=== PATIENT | male | born 1940 | race Caucasian/White ===

== ENCOUNTER 2017-04-08 13:47 | Inpatient (IN) | payer MEDICARE, OTHER ==
[2017-04-08] MEDS ORDERED: MIDAZOLAM 1 MG/ML 2 ML INJ (17:36)
[2017-04-08] MEDS: BUPIVACAINE 0.5% (SDV) 30 ML INJ (18:08)
[2017-04-08] MEDS: POLYMYXIN/BACITRACIN 1L IRRIG (18:09)
[2017-04-08] MEDS: LIDOCAINE 2% (MDV) 20 ML INJ (18:09)
[2017-04-08] MEDS ORDERED: FLUMAZENIL 0.5 MG INJ (18:17)
[2017-04-08] MEDS ORDERED: CEFAZOLIN 1 GM INJ (18:17)
[2017-04-08] MEDS ORDERED: KETAMINE 500 MG INJ (18:17)
[2017-04-08] MEDS ORDERED: hydrALAzine 20 MG INJ IV (18:30)
[2017-04-08] MEDS ORDERED: MEPERIDINE 25 MG INJ IV (18:30)
[2017-04-08] MEDS ORDERED: hydrALAzine 20 MG INJ (18:32)
[2017-04-08] MEDS ORDERED: METOPROLOL 5 MG INJ (19:01)
[2017-04-08] MEDS: METOPROLOL 5 MG INJ IV (19:28)
[2017-04-08] MEDS ORDERED: ONDANSETRON 4 MG INJ IV (19:30)
[2017-04-08] MEDS ORDERED: morphine 2 MG INJ IV ×2 (19:30→21:00)
[2017-04-08 19:41] LABS: ALANINE AMINOTRANSFERASE 43 IU/L (13-69); ALBUMIN/GLOBULIN RATIO 1.42; ALKALINE PHOSPHATASE 114 IU/L (42-121); ANION GAP 18 (8-16); ASPARTATE AMINO TRANSFERASE 29 IU/L (15-46); BILIRUBIN,INDIRECT 0.3 mg/dl (0-1.1); BILIRUBIN,TOTAL 0.3 mg/dl (0.2-1.3); CARBON DIOXIDE 25 mmol/L (21-31); CHLORIDE 106 mmol/L (97-110); GLUCOSE 101 mg/dl (70-220); TOTAL PROTEIN 6.8 g/dl (6.1-8.1)
[2017-04-08 19:41] LABS: MAGNESIUM 1.8 mg/dl (1.7-2.5)
[2017-04-08 19:43] LABS: CREATININE 0.95 mg/dl (0.61-1.24); POTASSIUM 4.1 mmol/L (3.5-5.1)
[2017-04-08 19:48] LABS: BLOOD UREA NITROGEN 32 mg/dl (7-20); SODIUM 145 mmol/L (135-144)
[2017-04-08] MEDS: MAGNESIUM SULFATE 2 GM/50 ML 50 ML IVPB (20:27)
[2017-04-08] MEDS ORDERED: ALBUTEROL/IPRATROPIUM (NEB) 3 ML AMP HHN (21:00)
[2017-04-08] MEDS ORDERED: LORAZEPAM 2 MG INJ IV (21:00)
[2017-04-08] MEDS ORDERED: DOCUSATE SODIUM 100 MG CAP PO (21:00)
[2017-04-08] MEDS ORDERED: NACL 0.9% 3 ML SYG IV (21:00)
[2017-04-08] MEDS ORDERED: HYDROCODONE/APAP (5/325) TAB PO (21:00)
[2017-04-08] MEDS ORDERED: ATORVASTATIN 80 MG TAB PO (21:00)
[2017-04-08] MEDS ORDERED: MIRTAZAPINE 15 MG TAB PO (21:00)
[2017-04-08] MEDS ORDERED: NITROGLYCERIN (SL) 0.4 MG TAB SL (21:00)
[2017-04-08] MEDS ORDERED: VANCOMYCIN IV PER PHARMACY XX (21:00)
[2017-04-08] MEDS ORDERED: GABAPENTIN 300 MG CAP PO (21:00)
[2017-04-08] MEDS ORDERED: MAGNESIUM HYDROXIDE 30ML CUP PO (21:00)
[2017-04-08] MEDS ORDERED: NA PHOSPHATE/BIPHOS 133 ML ENEMA PR (21:00)
[2017-04-08] MEDS ORDERED: GLUCOSE GEL 15 GRAM TUBE BUCCAL (21:30)
[2017-04-08] MEDS ORDERED: DEXTROSE 50% 50 ML SYRINGE IV ×2 (21:30)
[2017-04-08] MEDS ORDERED: GLUCAGON 1 MG INJ IM (21:30)
[2017-04-08] MEDS ORDERED: GLUCOSE GEL 15 GRAM TUBE PO ×2 (21:30)
[2017-04-08] MEDS: ATORVASTATIN 80 MG TAB PO (22:46)
[2017-04-08] MEDS: VANCOMYCIN 1.5 GM in DEXTROSE 5% 500 ML IVPB (22:47)
[2017-04-08] MEDS: MIRTAZAPINE 15 MG TAB PO (22:47)
[2017-04-08] MEDS: HEPARIN 5,000 UNIT/0.5 ML VIAL SC (23:04)
[2017-04-08] MEDS: GABAPENTIN 300 MG CAP PO (23:10)
[2017-04-09] LABS: FREE T4 (FREE THYROXINE) 1.18 ng/dl (0.78-2.44)
[2017-04-09] MEDS: PIPER-TAZO 3.375 GM IV (PMX) 100 ML IVPB ×4 (00:19→17:44)
[2017-04-09] MEDS: PANTOPRAZOLE (EC) 40 MG TAB PO (05:50)
[2017-04-09] MEDS: LEVOTHYROXINE 75 MCG TAB PO (05:50)
[2017-04-09] MEDS ORDERED: LEVOTHYROXINE 75 MCG TAB PO (07:00)
[2017-04-09 07:22] LABS: ADD MAN DIFF? NO
[2017-04-09 07:30] LABS: WHITE BLOOD COUNT 4.6 10^3/ul (4.8-10.8)
[2017-04-09 07:30] LABS: BASOPHILS % 0.9 % (0.0-2.0); EOSINOPHILS # 0.3 10^3/ul (0.0-0.5); EOSINOPHILS % 6.6 % (0.0-7.0); HEMATOCRIT 34.2 % (42.0-52.0); LYMPHOCYTES # 1.4 10^3/ul (0.8-2.9); LYMPHOCYTES % 30.2 % (15.0-51.0); MEAN CORPUSCULAR HGB CONC 32.2 g/dl (32.0-37.0); MEAN CORPUSCULAR VOLUME 90.2 fl (82.0-101.0); MEAN PLATELET VOLUME 11.3 fl (7.4-10.4); MONOCYTE # 0.4 10^3/ul (0.3-0.9); MONOCYTES % 8.1 % (0.0-11.0); NEUTROPHIL # 2.5 10^3/ul (1.6-7.5); PLATELET COUNT 132 10^3/UL (140-415); RED BLOOD COUNT 3.79 10^6/ul (4.70-6.10)
[2017-04-09 08:05] LABS: CHOL/HDL RATIO 1.7 RATIO; HDL CHOLESTEROL 33 mg/dl (31-75); LDL CHOLESTEROL,CALCULATED 6 mg/dl; TRIGLYCERIDES 96 mg/dl (0-149)
[2017-04-09 08:05] LABS: CHOLESTEROL 58 mg/dl (100-200)
[2017-04-09 08:11] LABS: ANION GAP 14 (8-16); BLOOD UREA NITROGEN 32 mg/dl (7-20); CALCIUM 8.9 mg/dl (8.4-10.2); CARBON DIOXIDE 27 mmol/L (21-31); CHLORIDE 105 mmol/L (97-110); CREATININE 1.13 mg/dl (0.61-1.24); GLUCOSE 181 mg/dl (70-220); MAGNESIUM 2.3 mg/dl (1.7-2.5); PHOSPHORUS 3.8 mg/dl (2.5-4.9); SODIUM 142 mmol/L (135-144)
[2017-04-09] MEDS: ASPIRIN 81 MG TAB PO (08:45)
[2017-04-09] MEDS: FUROSEMIDE 20 MG TAB PO (08:45)
[2017-04-09] MEDS: POTASSIUM CHLORIDE (SR) 20 MEQ TAB PO (08:45)
[2017-04-09] MEDS: INSULIN ASPART [NOVOLOG] 3 ML PEN SC ×4 (08:50→21:21)
[2017-04-09] MEDS: HEPARIN 5,000 UNIT/0.5 ML VIAL SC ×2 (08:50→21:22)
[2017-04-09] MEDS ORDERED: POTASSIUM CHLORIDE (SR) 20 MEQ TAB PO (09:00)
[2017-04-09] MEDS ORDERED: ASPIRIN (EC) 81 MG TAB PO (09:00)
[2017-04-09] MEDS ORDERED: PANTOPRAZOLE (EC) 40 MG TAB PO (09:00)
[2017-04-09] MEDS ORDERED: FUROSEMIDE 20 MG TAB PO (09:00)
[2017-04-09 09:58] LABS: HEMOGLOBIN A1C 5.8 % (0-5.9)
[2017-04-09] MEDS: VANCOMYCIN 750 MG in DEXTROSE 5% 150 ML IVPB ×2 (12:24→22:41)
[2017-04-09 18:10] LABS: CREATINE KINASE 49 IU/L (23-200)
[2017-04-09 18:23] LABS: CK INDEX 1.9
[2017-04-09 18:30] LABS: CK-MB 0.92 ng/ml (0.0-2.4); TROPONIN-I < 0.012 ng/ml (0.00-0.12)
[2017-04-09] MEDS: MIRTAZAPINE 15 MG TAB PO (21:18)
[2017-04-09] MEDS: ATORVASTATIN 80 MG TAB PO (21:19)
[2017-04-09] MEDS: GABAPENTIN 300 MG CAP PO (21:19)
[2017-04-10] MEDS: PIPER-TAZO 3.375 GM IV (PMX) 100 ML IVPB ×5 (00:17→23:13)
[2017-04-10 00:49] LABS: CREATINE KINASE 46 IU/L (23-200)
[2017-04-10 01:03] LABS: CK INDEX 2.5; CK-MB 1.15 ng/ml (0.0-2.4); TROPONIN-I 0.013 ng/ml (0.00-0.12)
[2017-04-10] MEDS: PANTOPRAZOLE (EC) 40 MG TAB PO (05:39)
[2017-04-10] MEDS: LEVOTHYROXINE 75 MCG TAB PO (05:39)
[2017-04-10] MEDS: POTASSIUM CHLORIDE (SR) 20 MEQ TAB PO (08:35)
[2017-04-10] MEDS: FUROSEMIDE 20 MG TAB PO (08:35)
[2017-04-10] MEDS: ASPIRIN 81 MG TAB PO (08:35)
[2017-04-10] MEDS: HEPARIN 5,000 UNIT/0.5 ML VIAL SC ×2 (08:41→21:07)
[2017-04-10] MEDS: INSULIN ASPART [NOVOLOG] 3 ML PEN SC ×4 (08:41→22:06)
[2017-04-10 08:51] LABS: ADD MAN DIFF? NO
[2017-04-10 08:57] LABS: BASOPHIL # 0.1 10^3/ul (0.0-0.1); BASOPHILS % 1.1 % (0.0-2.0); EOSINOPHILS # 0.3 10^3/ul (0.0-0.5); EOSINOPHILS % 5.8 % (0.0-7.0); HEMATOCRIT 35.1 % (42.0-52.0); HEMOGLOBIN 11.5 g/dl (14.0-18.0); LYMPHOCYTES # 1.8 10^3/ul (0.8-2.9); LYMPHOCYTES % 33.9 % (15.0-51.0); MEAN CORPUSCULAR HEMOGLOBIN 29.6 pg (29.0-33.0); MEAN CORPUSCULAR HGB CONC 32.8 g/dl (32.0-37.0); MEAN CORPUSCULAR VOLUME 90.2 fl (82.0-101.0); MEAN PLATELET VOLUME 11.1 fl (7.4-10.4); MONOCYTE # 0.5 10^3/ul (0.3-0.9); MONOCYTES % 9.3 % (0.0-11.0); NEUTROPHIL # 2.7 10^3/ul (1.6-7.5); NEUTROPHILS % 49.7 % (39.0-77.0); PLATELET COUNT 131 10^3/UL (140-415); POSITIVE DIFF @See below; RED BLOOD COUNT 3.89 10^6/ul (4.70-6.10)
[2017-04-10 08:57] LABS: WHITE BLOOD COUNT 5.4 10^3/ul (4.8-10.8)
[2017-04-10 09:29] LABS: ANION GAP 14 (8-16); BLOOD UREA NITROGEN 26 mg/dl (7-20); CALCIUM 8.7 mg/dl (8.4-10.2); CARBON DIOXIDE 25 mmol/L (21-31); CHLORIDE 107 mmol/L (97-110); CREATININE 1.11 mg/dl (0.61-1.24); GLUCOSE 189 mg/dl (70-220); POTASSIUM 4.4 mmol/L (3.5-5.1); SODIUM 142 mmol/L (135-144)
[2017-04-10 09:48] LABS: CREATINE KINASE 47 IU/L (23-200)
[2017-04-10 10:01] LABS: CK INDEX 2.4; TROPONIN-I 0.014 ng/ml (0.00-0.12)
[2017-04-10 10:02] LABS: CK-MB 1.14 ng/ml (0.0-2.4)
[2017-04-10] MEDS: VANCOMYCIN 750 MG in DEXTROSE 5% 150 ML IVPB ×2 (12:04→23:00)
[2017-04-10 12:15] LABS: VANCOMYCIN,TROUGH 16.9 ug/ml (10.0-20.0)
[2017-04-10] MEDS: MIRTAZAPINE 15 MG TAB PO (21:03)
[2017-04-10] MEDS: GABAPENTIN 300 MG CAP PO (21:03)
[2017-04-10] MEDS: ATORVASTATIN 80 MG TAB PO (21:03)
[2017-04-10] MEDS: INSULIN GLARGINE [LANtus] 3 ML PEN SC (22:07)
[2017-04-11] MEDS: PIPER-TAZO 3.375 GM IV (PMX) 100 ML IVPB ×4 (06:10→23:09)
[2017-04-11] MEDS: PANTOPRAZOLE (EC) 40 MG TAB PO (06:26)
[2017-04-11] MEDS: LEVOTHYROXINE 75 MCG TAB PO (06:26)
[2017-04-11] MEDS: INSULIN ASPART [NOVOLOG] 3 ML PEN SC ×4 (08:00→21:00)
[2017-04-11 08:46] LABS: ADD MAN DIFF? NO
[2017-04-11 08:47] LABS: BASOPHIL # 0.1 10^3/ul (0.0-0.1); BASOPHILS % 1.1 % (0.0-2.0); EOSINOPHILS # 0.4 10^3/ul (0.0-0.5); EOSINOPHILS % 6.5 % (0.0-7.0); HEMATOCRIT 34.8 % (42.0-52.0); HEMOGLOBIN 11.2 g/dl (14.0-18.0); LYMPHOCYTES # 1.4 10^3/ul (0.8-2.9); LYMPHOCYTES % 24.5 % (15.0-51.0); MEAN CORPUSCULAR HEMOGLOBIN 29.1 pg (29.0-33.0); MEAN CORPUSCULAR HGB CONC 32.2 g/dl (32.0-37.0); MEAN CORPUSCULAR VOLUME 90.4 fl (82.0-101.0); MEAN PLATELET VOLUME 11.5 fl (7.4-10.4); MONOCYTE # 0.5 10^3/ul (0.3-0.9); MONOCYTES % 7.9 % (0.0-11.0); NEUTROPHIL # 3.4 10^3/ul (1.6-7.5); NEUTROPHILS % 59.8 % (39.0-77.0); PLATELET COUNT 135 10^3/UL (140-415); POSITIVE DIFF @See below; RED BLOOD COUNT 3.85 10^6/ul (4.70-6.10); RED CELL DISTRIBUTION WIDTH 14.2 % (11.5-14.5)
[2017-04-11 08:47] LABS: WHITE BLOOD COUNT 5.7 10^3/ul (4.8-10.8)
[2017-04-11] MEDS: POTASSIUM CHLORIDE (SR) 20 MEQ TAB PO (09:09)
[2017-04-11] MEDS: ASPIRIN 81 MG TAB PO (09:12)
[2017-04-11] MEDS: HEPARIN 5,000 UNIT/0.5 ML VIAL SC ×2 (09:12→21:30)
[2017-04-11] MEDS: FUROSEMIDE 20 MG TAB PO (09:12)
[2017-04-11] MEDS: BENAZEPRIL 5 MG TAB PO (09:12)
[2017-04-11 09:20] LABS: ANION GAP 12 (8-16); BLOOD UREA NITROGEN 21 mg/dl (7-20); CALCIUM 9.2 mg/dl (8.4-10.2); CARBON DIOXIDE 27 mmol/L (21-31); CHLORIDE 107 mmol/L (97-110); CREATININE 1.25 mg/dl (0.61-1.24); GLUCOSE 143 mg/dl (70-220); POTASSIUM 3.9 mmol/L (3.5-5.1); SODIUM 142 mmol/L (135-144)
[2017-04-11] MEDS: VANCOMYCIN 750 MG in DEXTROSE 5% 150 ML IVPB (12:06)
[2017-04-11] MEDS: ATORVASTATIN 80 MG TAB PO (21:26)
[2017-04-11] MEDS: MIRTAZAPINE 15 MG TAB PO (21:26)
[2017-04-11] MEDS: GABAPENTIN 300 MG CAP PO (21:26)
[2017-04-11] MEDS: INSULIN GLARGINE [LANtus] 3 ML PEN SC (22:19)
[2017-04-11] MEDS: VANCOMYCIN 500MG/NS (PMX) 100 ML IVPB (22:28)
[2017-04-12] MEDS: ACCU-CHEK XX (01:23)
[2017-04-12] MEDS: ACETAMINOPHEN 325 MG TAB PO ×2 (04:55→14:17)
[2017-04-12] MEDS: PANTOPRAZOLE (EC) 40 MG TAB PO (05:59)
[2017-04-12] MEDS: LEVOTHYROXINE 75 MCG TAB PO (05:59)
[2017-04-12] MEDS: PIPER-TAZO 3.375 GM IV (PMX) 100 ML IVPB ×4 (05:59→23:01)
[2017-04-12 06:39] LABS: ADD MAN DIFF? NO
[2017-04-12 06:46] LABS: BASOPHIL # 0.1 10^3/ul (0.0-0.1); BASOPHILS % 1.1 % (0.0-2.0); EOSINOPHILS # 0.2 10^3/ul (0.0-0.5); EOSINOPHILS % 3.5 % (0.0-7.0); HEMATOCRIT 34.5 % (42.0-52.0); HEMOGLOBIN 11.3 g/dl (14.0-18.0); LYMPHOCYTES # 0.6 10^3/ul (0.8-2.9); LYMPHOCYTES % 14.1 % (15.0-51.0); MEAN CORPUSCULAR HEMOGLOBIN 29.5 pg (29.0-33.0); MEAN CORPUSCULAR HGB CONC 32.8 g/dl (32.0-37.0); MEAN CORPUSCULAR VOLUME 90.1 fl (82.0-101.0); MEAN PLATELET VOLUME 11.2 fl (7.4-10.4); MONOCYTE # 0.4 10^3/ul (0.3-0.9); MONOCYTES % 7.7 % (0.0-11.0); NEUTROPHIL # 3.3 10^3/ul (1.6-7.5); NEUTROPHILS % 73.4 % (39.0-77.0); PLATELET COUNT 116 10^3/UL (140-415); RED BLOOD COUNT 3.83 10^6/ul (4.70-6.10); RED CELL DISTRIBUTION WIDTH 13.8 % (11.5-14.5)
[2017-04-12 06:46] LABS: WHITE BLOOD COUNT 4.6 10^3/ul (4.8-10.8)
[2017-04-12 07:10] LABS: ANION GAP 14 (8-16); BLOOD UREA NITROGEN 19 mg/dl (7-20); CALCIUM 9.2 mg/dl (8.4-10.2); CARBON DIOXIDE 26 mmol/L (21-31); CHLORIDE 107 mmol/L (97-110); CREATININE 1.17 mg/dl (0.61-1.24); GLUCOSE 122 mg/dl (70-220); POTASSIUM 3.5 mmol/L (3.5-5.1); SODIUM 143 mmol/L (135-144)
[2017-04-12] MEDS: INSULIN ASPART [NOVOLOG] 3 ML PEN SC ×7 (07:55→20:57)
[2017-04-12] MEDS: POTASSIUM CHLORIDE (SR) 20 MEQ TAB PO (09:23)
[2017-04-12] MEDS: ASPIRIN 81 MG TAB PO (09:23)
[2017-04-12] MEDS: LINAGLIPTIN 5 MG TABLET PO (09:23)
[2017-04-12] MEDS: BENAZEPRIL 5 MG TAB PO (09:24)
[2017-04-12] MEDS: FUROSEMIDE 20 MG TAB PO (09:24)
[2017-04-12] MEDS: HEPARIN 5,000 UNIT/0.5 ML VIAL SC ×2 (09:39→20:49)
[2017-04-12] MEDS: VANCOMYCIN 500MG/NS (PMX) 100 ML IVPB ×2 (11:50→23:01)
[2017-04-12] MEDS: ONDANSETRON 4 MG INJ IV (14:07)
[2017-04-12] MEDS: SOD CHLORIDE 0.9% 1,000 ML IV (14:55)
[2017-04-12] MEDS: ATORVASTATIN 80 MG TAB PO (20:39)
[2017-04-12] MEDS: MIRTAZAPINE 15 MG TAB PO (20:39)
[2017-04-12] MEDS: GABAPENTIN 300 MG CAP PO (20:39)
[2017-04-12] MEDS: INSULIN GLARGINE [LANtus] 3 ML PEN SC (20:50)
[2017-04-13] MEDS: ACCU-CHEK XX (02:00)
[2017-04-13] MEDS: PIPER-TAZO 3.375 GM IV (PMX) 100 ML IVPB ×3 (05:18→18:14)
[2017-04-13] MEDS: PANTOPRAZOLE (EC) 40 MG TAB PO (05:18)
[2017-04-13] MEDS: LEVOTHYROXINE 75 MCG TAB PO (05:19)
[2017-04-13 06:35] LABS: ADD MAN DIFF? NO
[2017-04-13 06:43] LABS: WHITE BLOOD COUNT 5.8 10^3/ul (4.8-10.8)
[2017-04-13 06:43] LABS: BASOPHILS % 0.7 % (0.0-2.0); EOSINOPHILS % 0.2 % (0.0-7.0); HEMATOCRIT 30.7 % (42.0-52.0); HEMOGLOBIN 9.9 g/dl (14.0-18.0); LYMPHOCYTES % 17.1 % (15.0-51.0); MEAN CORPUSCULAR HEMOGLOBIN 29.1 pg (29.0-33.0); MEAN CORPUSCULAR HGB CONC 32.2 g/dl (32.0-37.0); MEAN CORPUSCULAR VOLUME 90.3 fl (82.0-101.0); MONOCYTE # 0.4 10^3/ul (0.3-0.9); MONOCYTES % 7.4 % (0.0-11.0); NEUTROPHIL # 4.3 10^3/ul (1.6-7.5); NEUTROPHILS % 74.4 % (39.0-77.0); PLATELET COUNT 122 10^3/UL (140-415); RED CELL DISTRIBUTION WIDTH 14.1 % (11.5-14.5)
[2017-04-13 07:17] LABS: ANION GAP 13 (8-16); BLOOD UREA NITROGEN 24 mg/dl (7-20); CALCIUM 8.6 mg/dl (8.4-10.2); CARBON DIOXIDE 25 mmol/L (21-31); CHLORIDE 109 mmol/L (97-110); CREATININE 1.24 mg/dl (0.61-1.24); GLUCOSE 112 mg/dl (70-220); POTASSIUM 3.7 mmol/L (3.5-5.1); SODIUM 143 mmol/L (135-144)
[2017-04-13] MEDS: INSULIN ASPART [NOVOLOG] 3 ML PEN SC ×7 (07:55→20:47)
[2017-04-13] MEDS: POTASSIUM CHLORIDE (SR) 20 MEQ TAB PO ×2 (10:03→18:16)
[2017-04-13] MEDS: ASPIRIN 81 MG TAB PO (10:04)
[2017-04-13] MEDS: BENAZEPRIL 5 MG TAB PO (10:04)
[2017-04-13] MEDS: FUROSEMIDE 20 MG TAB PO (10:04)
[2017-04-13] MEDS: LINAGLIPTIN 5 MG TABLET PO (10:04)
[2017-04-13] MEDS: HEPARIN 5,000 UNIT/0.5 ML VIAL SC ×2 (10:07→20:46)
[2017-04-13 10:58] LABS: VANCOMYCIN,TROUGH 13.8 ug/ml (10.0-20.0)
[2017-04-13] MEDS: SOD CHLORIDE 0.9% 1,000 ML IV (11:00)
[2017-04-13] MEDS: VANCOMYCIN 500MG/NS (PMX) 100 ML IVPB (11:48)
[2017-04-13] MEDS: ACETAMINOPHEN 325 MG TAB PO (12:03)
[2017-04-13] MEDS: ATORVASTATIN 80 MG TAB PO (20:40)
[2017-04-13] MEDS: GABAPENTIN 300 MG CAP PO (20:40)
[2017-04-13] MEDS: MIRTAZAPINE 15 MG TAB PO (20:40)
[2017-04-13] MEDS: INSULIN GLARGINE [LANtus] 3 ML PEN SC (20:46)
[2017-04-14] MEDS: PIPER-TAZO 3.375 GM IV (PMX) 100 ML IVPB ×4 (00:12→17:26)
[2017-04-14] MEDS: VANCOMYCIN 500MG/NS (PMX) 100 ML IVPB ×2 (00:13→11:16)
[2017-04-14 01:06] LABS: ADD UMIC YES; UR ASCORBIC ACID NEGATIVE (NEGATIVE); UR BILIRUBIN (Dip) NEGATIVE (NEGATIVE); UR BLOOD (Dip) 2+ mg/dL (NEGATIVE); UR CLARITY SLIGHTLY CLOUDY (CLEAR); UR COLOR YELLOW (YELLOW); UR GLUCOSE (Dip) 1+ mg/dL (NEGATIVE); UR KETONES (Dip) NEGATIVE (NEGATIVE); UR LEUKOCYTE ESTERASE (Dip) NEGATIVE Leu/ul (NEGATIVE); UR NITRITE (Dip) NEGATIVE (NEGATIVE); UR RBC 54 /HPF (0-5); UR SPECIFIC GRAVITY (Dip) 1.019 (1.003-1.030); UR TOTAL PROTEIN (Dip) 1+ mg/dl (NEGATIVE); UR UROBILINOGEN (Dip) NEGATIVE (NEGATIVE); UR WBC 2 /HPF (0-5)
[2017-04-14] MEDS: ACCU-CHEK XX (02:00)
[2017-04-14] MEDS: PANTOPRAZOLE (EC) 40 MG TAB PO (05:57)
[2017-04-14] MEDS: LEVOTHYROXINE 75 MCG TAB PO (05:57)
[2017-04-14] MEDS: SOD CHLORIDE 0.9% 1,000 ML IV (06:02)
[2017-04-14] MEDS: hydrALAzine 20 MG INJ IV (06:58)
[2017-04-14] MEDS: INSULIN ASPART [NOVOLOG] 3 ML PEN SC ×7 (07:55→20:31)
[2017-04-14 08:53] LABS: ABNORMAL IP MESSAGE 1; HEMATOCRIT 32.9 % (42.0-52.0); HEMOGLOBIN 10.7 g/dl (14.0-18.0); MEAN CORPUSCULAR HEMOGLOBIN 29.3 pg (29.0-33.0); MEAN CORPUSCULAR HGB CONC 32.5 g/dl (32.0-37.0); MEAN CORPUSCULAR VOLUME 90.1 fl (82.0-101.0); MEAN PLATELET VOLUME 11.8 fl (7.4-10.4); PLATELET COUNT 125 10^3/UL (140-415); POSITIVE DIFF @See below; RED BLOOD COUNT 3.65 10^6/ul (4.70-6.10); RED CELL DISTRIBUTION WIDTH 13.9 % (11.5-14.5)
[2017-04-14 08:53] LABS: WHITE BLOOD COUNT 3.3 10^3/ul (4.8-10.8)
[2017-04-14 08:58] LABS: ADD MAN DIFF? YES
[2017-04-14] MEDS: ONDANSETRON 4 MG INJ IV (09:03)
[2017-04-14] MEDS: FUROSEMIDE 20 MG TAB PO (09:06)
[2017-04-14] MEDS: POTASSIUM CHLORIDE (SR) 20 MEQ TAB PO (09:07)
[2017-04-14] MEDS: ASPIRIN 81 MG TAB PO (09:07)
[2017-04-14] MEDS: BENAZEPRIL 5 MG TAB PO (09:07)
[2017-04-14] MEDS: ERGOCALCIFEROL 50,000 UNIT CAP PO (09:07)
[2017-04-14] MEDS: LINAGLIPTIN 5 MG TABLET PO (09:07)
[2017-04-14] MEDS: HEPARIN 5,000 UNIT/0.5 ML VIAL SC ×2 (09:08→20:26)
[2017-04-14 09:12] LABS: ANION GAP 14 (8-16); BLOOD UREA NITROGEN 18 mg/dl (7-20); CALCIUM 8.2 mg/dl (8.4-10.2); CARBON DIOXIDE 21 mmol/L (21-31); CHLORIDE 111 mmol/L (97-110); CREATININE 1.02 mg/dl (0.61-1.24); GLUCOSE 106 mg/dl (70-220); POTASSIUM 4.1 mmol/L (3.5-5.1); SODIUM 142 mmol/L (135-144)
[2017-04-14 10:25] LABS: ANISOCYTOSIS 2+ (0-0); BAND NEUTROPHILS #M 1.1 10^3/ul (0.0-0.6); BAND NEUTROPHILS % (M) 34 % (0-4); LYMPHOCYTES #M 0.7 10^3/ul (0.8-2.9); LYMPHOCYTES % (M) 24 % (15-51); METAMYELOCYTES %M 1 % (0-0); MICROCYTOSIS 2+ (0-0); MONOCYTE #M 0.2 10^3/ul (0.3-0.9); MONOCYTES % (M) 7 % (0-11); PLATELET ESTIMATE DECREASED; REACTIVE LYMPHOCYTES #M 0.1 10^3/ul (0.0-0.0); REACTIVE LYMPHOCYTES% (M) 5 % (0-0); SEGMENTED NEUTROPHILS (M) % 29 % (39-77); SMUDGE%M 4 % (0-0)
[2017-04-14] MEDS: MIRTAZAPINE 15 MG TAB PO (20:15)
[2017-04-14] MEDS: OSELTAMIVIR 75 MG CAP PO (20:15)
[2017-04-14] MEDS: GABAPENTIN 300 MG CAP PO (20:15)
[2017-04-14] MEDS: ATORVASTATIN 80 MG TAB PO (20:16)
[2017-04-14] MEDS: INSULIN GLARGINE [LANtus] 3 ML PEN SC (20:29)
[2017-04-15] MEDS: VANCOMYCIN 500MG/NS (PMX) 100 ML IVPB ×2 (00:33→11:14)
[2017-04-15] MEDS: PIPER-TAZO 3.375 GM IV (PMX) 100 ML IVPB ×3 (01:24→12:00)
[2017-04-15] MEDS: ACCU-CHEK XX (02:00)
[2017-04-15] MEDS: SOD CHLORIDE 0.9% 1,000 ML IV ×2 (03:05→22:55)
[2017-04-15] MEDS: PANTOPRAZOLE (EC) 40 MG TAB PO (05:45)
[2017-04-15] MEDS: LEVOTHYROXINE 75 MCG TAB PO (05:46)
[2017-04-15 07:09] LABS: HEMATOCRIT 28.6 % (42.0-52.0); MEAN CORPUSCULAR HEMOGLOBIN 28.7 pg (29.0-33.0); MEAN CORPUSCULAR HGB CONC 31.5 g/dl (32.0-37.0); MEAN CORPUSCULAR VOLUME 91.1 fl (82.0-101.0); MEAN PLATELET VOLUME 11.3 fl (7.4-10.4); PLATELET COUNT 138 10^3/UL (140-415); POSITIVE DIFF @See below; RED BLOOD COUNT 3.14 10^6/ul (4.70-6.10); RED CELL DISTRIBUTION WIDTH 14.1 % (11.5-14.5)
[2017-04-15 07:09] LABS: WHITE BLOOD COUNT 2.9 10^3/ul (4.8-10.8)
[2017-04-15 07:20] LABS: ADD MAN DIFF? YES
[2017-04-15 07:34] LABS: ANION GAP 11 (8-16); BLOOD UREA NITROGEN 19 mg/dl (7-20); CALCIUM 8.2 mg/dl (8.4-10.2); CARBON DIOXIDE 23 mmol/L (21-31); CHLORIDE 112 mmol/L (97-110); CREATININE 1.15 mg/dl (0.61-1.24); GLUCOSE 108 mg/dl (70-220); SODIUM 142 mmol/L (135-144)
[2017-04-15] MEDS: INSULIN ASPART [NOVOLOG] 3 ML PEN SC ×7 (07:55→21:00)
[2017-04-15] MEDS: HEPARIN 5,000 UNIT/0.5 ML VIAL SC ×2 (08:20→22:08)
[2017-04-15] MEDS: OSELTAMIVIR 75 MG CAP PO ×3 (08:23→21:56)
[2017-04-15] MEDS: ASPIRIN 81 MG TAB PO (08:23)
[2017-04-15] MEDS: POTASSIUM CHLORIDE (SR) 20 MEQ TAB PO (08:23)
[2017-04-15] MEDS: LINAGLIPTIN 5 MG TABLET PO (08:23)
[2017-04-15] MEDS: ACETAMINOPHEN 325 MG TAB PO (08:24)
[2017-04-15] MEDS: FUROSEMIDE 20 MG TAB PO (08:31)
[2017-04-15] MEDS: BENAZEPRIL 5 MG TAB PO (08:31)
[2017-04-15 12:36] LABS: ANISOCYTOSIS 1+ (0-0); BAND NEUTROPHILS #M 0.4 10^3/ul (0.0-0.6); BAND NEUTROPHILS % (M) 17 % (0-4); BASOPHILS % (M) 1 % (0-2); BURR CELLS 1+ (0-0); EOSINOPHILS % (M) 3 % (0-7); GIANT THROMBO% (M) 6 % (0-0); LYMPHOCYTES #M 0.8 10^3/ul (0.8-2.9); LYMPHOCYTES % (M) 29 % (15-51); METAMYELOCYTES %M 2 % (0-0); MONOCYTE #M 0.1 10^3/ul (0.3-0.9); MONOCYTES % (M) 6 % (0-11); PLATELET ESTIMATE DECREASED; POLYCHROMASIA 1+ (0-0); SEG NEUT #M 1.2 10^3/ul (1.7-7.5); SEGMENTED NEUTROPHILS (M) % 42 % (39-77); SMUDGE%M 21 % (0-0)
[2017-04-15] MEDS: MIRTAZAPINE 15 MG TAB PO (21:54)
[2017-04-15] MEDS: ATORVASTATIN 80 MG TAB PO (21:55)
[2017-04-15] MEDS: GABAPENTIN 300 MG CAP PO (21:55)
[2017-04-15] MEDS: INSULIN GLARGINE [LANtus] 3 ML PEN SC (22:09)
[2017-04-16] MEDS: ACCU-CHEK XX (02:00)
[2017-04-16] MEDS: PANTOPRAZOLE (EC) 40 MG TAB PO (06:11)
[2017-04-16] MEDS: LEVOTHYROXINE 75 MCG TAB PO (06:11)
[2017-04-16] MEDS: INSULIN ASPART [NOVOLOG] 3 ML PEN SC ×7 (07:55→21:00)
[2017-04-16 08:04] LABS: ADD MAN DIFF? NO
[2017-04-16 08:05] LABS: WHITE BLOOD COUNT 4.2 10^3/ul (4.8-10.8)
[2017-04-16 08:05] LABS: BASOPHILS % 0.5 % (0.0-2.0); EOSINOPHILS # 0.3 10^3/ul (0.0-0.5); EOSINOPHILS % 6.7 % (0.0-7.0); HEMATOCRIT 29.1 % (42.0-52.0); HEMOGLOBIN 9.3 g/dl (14.0-18.0); LYMPHOCYTES # 1.1 10^3/ul (0.8-2.9); LYMPHOCYTES % 27.3 % (15.0-51.0); MEAN CORPUSCULAR HEMOGLOBIN 29.4 pg (29.0-33.0); MEAN CORPUSCULAR VOLUME 92.1 fl (82.0-101.0); MEAN PLATELET VOLUME 10.7 fl (7.4-10.4); MONOCYTE # 0.4 10^3/ul (0.3-0.9); MONOCYTES % 8.9 % (0.0-11.0); NEUTROPHIL # 2.4 10^3/ul (1.6-7.5); NEUTROPHILS % 56.4 % (39.0-77.0); PLATELET COUNT 147 10^3/UL (140-415); RED BLOOD COUNT 3.16 10^6/ul (4.70-6.10)
[2017-04-16 08:29] LABS: MAGNESIUM 1.9 mg/dl (1.7-2.5)
[2017-04-16 08:31] LABS: ANION GAP 12 (8-16); BLOOD UREA NITROGEN 27 mg/dl (7-20); CALCIUM 8.6 mg/dl (8.4-10.2); CARBON DIOXIDE 20 mmol/L (21-31); CHLORIDE 115 mmol/L (97-110); CREATININE 1.97 mg/dl (0.61-1.24); GLUCOSE 108 mg/dl (70-220); POTASSIUM 4.5 mmol/L (3.5-5.1); SODIUM 142 mmol/L (135-144)
[2017-04-16] MEDS: OSELTAMIVIR 75 MG CAP PO ×2 (09:05→22:36)
[2017-04-16] MEDS: FUROSEMIDE 20 MG TAB PO (09:05)
[2017-04-16] MEDS: POTASSIUM CHLORIDE (SR) 20 MEQ TAB PO (09:05)
[2017-04-16] MEDS: ASPIRIN 81 MG TAB PO (09:05)
[2017-04-16] MEDS: BENAZEPRIL 5 MG TAB PO (09:06)
[2017-04-16] MEDS: LINAGLIPTIN 5 MG TABLET PO (09:06)
[2017-04-16] MEDS: HEPARIN 5,000 UNIT/0.5 ML VIAL SC ×2 (09:18→22:42)
[2017-04-16] MEDS: SOD CHLORIDE 0.45% 1,000 ML IV (16:33)
[2017-04-16] MEDS: ATORVASTATIN 80 MG TAB PO (22:36)
[2017-04-16] MEDS: GABAPENTIN 300 MG CAP PO (22:36)
[2017-04-16] MEDS: MIRTAZAPINE 15 MG TAB PO (22:36)
[2017-04-16] MEDS: INSULIN GLARGINE [LANtus] 3 ML PEN SC (22:43)
[2017-04-17] MEDS: ACCU-CHEK XX (02:00)
[2017-04-17] MEDS: SOD CHLORIDE 0.45% 1,000 ML IV ×2 (06:01→22:31)
[2017-04-17] MEDS: PANTOPRAZOLE (EC) 40 MG TAB PO (06:01)
[2017-04-17] MEDS: LEVOTHYROXINE 75 MCG TAB PO (06:02)
[2017-04-17] MEDS: INSULIN ASPART [NOVOLOG] 3 ML PEN SC ×7 (08:57→21:00)
[2017-04-17] MEDS: POTASSIUM CHLORIDE (SR) 20 MEQ TAB PO (09:05)
[2017-04-17] MEDS: ASPIRIN 81 MG TAB PO (09:06)
[2017-04-17] MEDS: OSELTAMIVIR 75 MG CAP PO (09:06)
[2017-04-17] MEDS: LINAGLIPTIN 5 MG TABLET PO (09:07)
[2017-04-17] MEDS: BENAZEPRIL 5 MG TAB PO (09:08)
[2017-04-17 09:10] LABS: ADD MAN DIFF? NO
[2017-04-17 09:14] LABS: BASOPHILS % 0.4 % (0.0-2.0); EOSINOPHILS # 0.3 10^3/ul (0.0-0.5); EOSINOPHILS % 6.8 % (0.0-7.0); HEMOGLOBIN 9.6 g/dl (14.0-18.0); LYMPHOCYTES # 1.1 10^3/ul (0.8-2.9); LYMPHOCYTES % 24.8 % (15.0-51.0); MEAN CORPUSCULAR HEMOGLOBIN 28.7 pg (29.0-33.0); MEAN CORPUSCULAR VOLUME 89.8 fl (82.0-101.0); MEAN PLATELET VOLUME 10.9 fl (7.4-10.4); MONOCYTE # 0.3 10^3/ul (0.3-0.9); MONOCYTES % 7.3 % (0.0-11.0); NEUTROPHIL # 2.7 10^3/ul (1.6-7.5); NEUTROPHILS % 60.3 % (39.0-77.0); PLATELET COUNT 147 10^3/UL (140-415); RED BLOOD COUNT 3.34 10^6/ul (4.70-6.10)
[2017-04-17 09:14] LABS: WHITE BLOOD COUNT 4.6 10^3/ul (4.8-10.8)
[2017-04-17] MEDS: HEPARIN 5,000 UNIT/0.5 ML VIAL SC ×2 (09:16→21:16)
[2017-04-17 09:33] LABS: ANION GAP 13 (8-16); BLOOD UREA NITROGEN 25 mg/dl (7-20); CALCIUM 8.7 mg/dl (8.4-10.2); CARBON DIOXIDE 19 mmol/L (21-31); CHLORIDE 113 mmol/L (97-110); CREATININE 1.91 mg/dl (0.61-1.24); GLUCOSE 148 mg/dl (70-220); POTASSIUM 4.3 mmol/L (3.5-5.1); SODIUM 141 mmol/L (135-144)
[2017-04-17] MEDS: GABAPENTIN 300 MG CAP PO (21:05)
[2017-04-17] MEDS: ATORVASTATIN 80 MG TAB PO (21:05)
[2017-04-17] MEDS: MIRTAZAPINE 15 MG TAB PO (21:05)
[2017-04-17] MEDS: INSULIN GLARGINE [LANtus] 3 ML PEN SC (21:10)
[2017-04-17] MEDS: OSELTAMIVIR 30 MG CAP PO (22:30)
[2017-04-18] MEDS: ACCU-CHEK XX (02:00)
[2017-04-18] MEDS: hydrALAzine 20 MG INJ IV (03:15)
[2017-04-18] MEDS: SOD CHLORIDE 0.45% 1,000 ML IV ×2 (05:00→12:30)
[2017-04-18] MEDS: LEVOTHYROXINE 75 MCG TAB PO (06:12)
[2017-04-18] MEDS: PANTOPRAZOLE (EC) 40 MG TAB PO (06:12)
[2017-04-18 06:19] LABS: ADD MAN DIFF? NO
[2017-04-18 06:27] LABS: WHITE BLOOD COUNT 5.8 10^3/ul (4.8-10.8)
[2017-04-18 06:27] LABS: BASOPHILS % 0.7 % (0.0-2.0); EOSINOPHILS # 0.4 10^3/ul (0.0-0.5); EOSINOPHILS % 6.4 % (0.0-7.0); HEMATOCRIT 30.4 % (42.0-52.0); HEMOGLOBIN 10.2 g/dl (14.0-18.0); LYMPHOCYTES # 1.4 10^3/ul (0.8-2.9); LYMPHOCYTES % 24.6 % (15.0-51.0); MEAN CORPUSCULAR HEMOGLOBIN 29.4 pg (29.0-33.0); MEAN CORPUSCULAR HGB CONC 33.6 g/dl (32.0-37.0); MEAN CORPUSCULAR VOLUME 87.6 fl (82.0-101.0); MEAN PLATELET VOLUME 10.4 fl (7.4-10.4); MONOCYTE # 0.4 10^3/ul (0.3-0.9); NEUTROPHIL # 3.5 10^3/ul (1.6-7.5); NEUTROPHILS % 60.8 % (39.0-77.0); PLATELET COUNT 194 10^3/UL (140-415); RED BLOOD COUNT 3.47 10^6/ul (4.70-6.10)
[2017-04-18 07:06] LABS: ANION GAP 14 (8-16); BLOOD UREA NITROGEN 21 mg/dl (7-20); CALCIUM 9.2 mg/dl (8.4-10.2); CARBON DIOXIDE 20 mmol/L (21-31); CHLORIDE 114 mmol/L (97-110); CREATININE 1.91 mg/dl (0.61-1.24); GLUCOSE 100 mg/dl (70-220); POTASSIUM 4.1 mmol/L (3.5-5.1); SODIUM 144 mmol/L (135-144)
[2017-04-18] MEDS: INSULIN ASPART [NOVOLOG] 3 ML PEN SC ×7 (07:55→21:00)
[2017-04-18] MEDS: POTASSIUM CHLORIDE (SR) 20 MEQ TAB PO (08:27)
[2017-04-18] MEDS: OSELTAMIVIR 30 MG CAP PO ×3 (08:27→22:30)
[2017-04-18] MEDS: ASPIRIN 81 MG TAB PO (08:27)
[2017-04-18] MEDS: HEPARIN 5,000 UNIT/0.5 ML VIAL SC ×3 (08:44→22:30)
[2017-04-18] MEDS: LINAGLIPTIN 5 MG TABLET PO (08:49)
[2017-04-18] MEDS: INSULIN GLARGINE [LANtus] 3 ML PEN SC (20:00)
[2017-04-18] MEDS: MIRTAZAPINE 15 MG TAB PO ×2 (22:30)
[2017-04-18] MEDS: ATORVASTATIN 80 MG TAB PO ×2 (22:30)
[2017-04-18] MEDS: GABAPENTIN 300 MG CAP PO ×2 (22:30)
[2017-04-18] MEDS: HYDROCODONE/APAP (5/325) TAB PO (22:42)
[2017-04-19] MEDS: ACCU-CHEK XX (02:00)
[2017-04-19] MEDS: SOD CHLORIDE 0.45% 1,000 ML IV ×2 (02:19→14:35)
[2017-04-19] MEDS: LEVOTHYROXINE 75 MCG TAB PO (06:10)
[2017-04-19] MEDS: PANTOPRAZOLE (EC) 40 MG TAB PO (06:10)
[2017-04-19] MEDS: INSULIN ASPART [NOVOLOG] 3 ML PEN SC ×7 (07:55→21:00)
[2017-04-19] MEDS: LINAGLIPTIN 5 MG TABLET PO (09:22)
[2017-04-19] MEDS: OSELTAMIVIR 30 MG CAP PO (09:22)
[2017-04-19] MEDS: ASPIRIN 81 MG TAB PO (09:24)
[2017-04-19] MEDS: GUAIFENESIN/DM 5ML CUP PO (09:24)
[2017-04-19] MEDS: POTASSIUM CHLORIDE (SR) 20 MEQ TAB PO (09:24)
[2017-04-19] MEDS: HEPARIN 5,000 UNIT/0.5 ML VIAL SC (09:25)
[2017-04-19] MEDS: FUROSEMIDE 40 MG TAB PO (18:18)
[2017-04-19] MEDS: LISINOPRIL 20 MG TAB PO (18:18)
[2017-04-19] MEDS: GABAPENTIN 300 MG CAP PO (22:00)
[2017-04-19] MEDS: MIRTAZAPINE 15 MG TAB PO (22:01)
[2017-04-19] MEDS: ATORVASTATIN 80 MG TAB PO (22:01)
[2017-04-19] MEDS: AMIODARONE 200 MG TAB PO (22:02)
[2017-04-19] MEDS: APIXABAN 5 MG TABLET PO (22:02)
[2017-04-19] MEDS: INSULIN GLARGINE [LANtus] 3 ML PEN SC (22:21)
[2017-04-20] MEDS: ACCU-CHEK XX (02:00)
[2017-04-20] MEDS: PANTOPRAZOLE (EC) 40 MG TAB PO (06:10)
[2017-04-20] MEDS: LEVOTHYROXINE 75 MCG TAB PO (06:10)
[2017-04-20] MEDS: SOD CHLORIDE 0.45% 1,000 ML IV ×2 (07:00→17:12)
[2017-04-20 07:08] LABS: ADD MAN DIFF? NO
[2017-04-20 07:15] LABS: BASOPHIL # 0.1 10^3/ul (0.0-0.1); EOSINOPHILS # 0.3 10^3/ul (0.0-0.5); EOSINOPHILS % 5.2 % (0.0-7.0); HEMATOCRIT 29.4 % (42.0-52.0); HEMOGLOBIN 9.6 g/dl (14.0-18.0); LYMPHOCYTES # 1.3 10^3/ul (0.8-2.9); LYMPHOCYTES % 25.8 % (15.0-51.0); MEAN CORPUSCULAR HEMOGLOBIN 28.8 pg (29.0-33.0); MEAN CORPUSCULAR HGB CONC 32.7 g/dl (32.0-37.0); MEAN CORPUSCULAR VOLUME 88.3 fl (82.0-101.0); MEAN PLATELET VOLUME 10.8 fl (7.4-10.4); MONOCYTE # 0.4 10^3/ul (0.3-0.9); MONOCYTES % 7.5 % (0.0-11.0); NEUTROPHILS % 59.5 % (39.0-77.0); PLATELET COUNT 216 10^3/UL (140-415); RED BLOOD COUNT 3.33 10^6/ul (4.70-6.10); RED CELL DISTRIBUTION WIDTH 14.2 % (11.5-14.5)
[2017-04-20 07:33] LABS: ANION GAP 14 (8-16); BLOOD UREA NITROGEN 21 mg/dl (7-20); CARBON DIOXIDE 23 mmol/L (21-31); CHLORIDE 111 mmol/L (97-110); CREATININE 1.77 mg/dl (0.61-1.24); GLUCOSE 84 mg/dl (70-220); POTASSIUM 3.9 mmol/L (3.5-5.1); SODIUM 144 mmol/L (135-144)
[2017-04-20 07:34] LABS: B-TYPE NATRIURETIC PEPTIDE 29300 PG/ML (0-125)
[2017-04-20] MEDS: INSULIN ASPART [NOVOLOG] 3 ML PEN SC ×7 (07:55→21:00)
[2017-04-20] MEDS: APIXABAN 5 MG TABLET PO ×2 (09:25→21:42)
[2017-04-20] MEDS: AMIODARONE 200 MG TAB PO ×2 (09:25→21:42)
[2017-04-20] MEDS: FUROSEMIDE 40 MG TAB PO (09:25)
[2017-04-20] MEDS: LISINOPRIL 20 MG TAB PO (09:25)
[2017-04-20] MEDS: POTASSIUM CHLORIDE (SR) 20 MEQ TAB PO (09:25)
[2017-04-20] MEDS: LINAGLIPTIN 5 MG TABLET PO (09:25)
[2017-04-20] MEDS: GABAPENTIN 300 MG CAP PO (21:41)
[2017-04-20] MEDS: MIRTAZAPINE 15 MG TAB PO (21:42)
[2017-04-20] MEDS: ATORVASTATIN 80 MG TAB PO (21:42)
[2017-04-20] MEDS: INSULIN GLARGINE [LANtus] 3 ML PEN SC (21:48)
[2017-04-21] MEDS: ACCU-CHEK XX (02:00)
[2017-04-21] MEDS: LEVOTHYROXINE 75 MCG TAB PO (05:41)
[2017-04-21] MEDS: PANTOPRAZOLE (EC) 40 MG TAB PO (05:41)
[2017-04-21] MEDS: INSULIN ASPART [NOVOLOG] 3 ML PEN SC ×7 (07:46→20:39)
[2017-04-21] MEDS: SOD CHLORIDE 0.45% 1,000 ML IV ×2 (08:00→18:00)
[2017-04-21] MEDS: AMIODARONE 200 MG TAB PO ×2 (08:12→20:40)
[2017-04-21] MEDS: POTASSIUM CHLORIDE (SR) 20 MEQ TAB PO (08:12)
[2017-04-21] MEDS: APIXABAN 5 MG TABLET PO ×2 (08:12→20:41)
[2017-04-21] MEDS: FUROSEMIDE 40 MG TAB PO (08:13)
[2017-04-21] MEDS: LINAGLIPTIN 5 MG TABLET PO (08:14)
[2017-04-21] MEDS: LISINOPRIL 20 MG TAB PO (08:14)
[2017-04-21] MEDS: ERGOCALCIFEROL 50,000 UNIT CAP PO (09:57)
[2017-04-21] MEDS: ATORVASTATIN 80 MG TAB PO (20:39)
[2017-04-21] MEDS: MIRTAZAPINE 15 MG TAB PO (20:39)
[2017-04-21] MEDS: GABAPENTIN 300 MG CAP PO (20:39)
[2017-04-21] MEDS: INSULIN GLARGINE [LANtus] 3 ML PEN SC (20:48)
[2017-04-22] MEDS: ACCU-CHEK XX (01:36)
[2017-04-22] MEDS: PANTOPRAZOLE (EC) 40 MG TAB PO (05:35)
[2017-04-22] MEDS: LEVOTHYROXINE 75 MCG TAB PO (05:35)
[2017-04-22] MEDS: SOD CHLORIDE 0.45% 1,000 ML IV ×2 (06:10→21:30)
[2017-04-22 06:32] LABS: ADD MAN DIFF? NO
[2017-04-22 06:42] LABS: BASOPHIL # 0.1 10^3/ul (0.0-0.1); BASOPHILS % 0.7 % (0.0-2.0); EOSINOPHILS # 0.3 10^3/ul (0.0-0.5); EOSINOPHILS % 4.9 % (0.0-7.0); HEMATOCRIT 29.7 % (42.0-52.0); HEMOGLOBIN 9.7 g/dl (14.0-18.0); LYMPHOCYTES # 1.4 10^3/ul (0.8-2.9); LYMPHOCYTES % 20.2 % (15.0-51.0); MEAN CORPUSCULAR HEMOGLOBIN 29.1 pg (29.0-33.0); MEAN CORPUSCULAR HGB CONC 32.7 g/dl (32.0-37.0); MEAN CORPUSCULAR VOLUME 89.2 fl (82.0-101.0); MEAN PLATELET VOLUME 10.8 fl (7.4-10.4); MONOCYTE # 0.5 10^3/ul (0.3-0.9); MONOCYTES % 6.8 % (0.0-11.0); NEUTROPHIL # 4.5 10^3/ul (1.6-7.5); PLATELET COUNT 201 10^3/UL (140-415); RED BLOOD COUNT 3.33 10^6/ul (4.70-6.10); RED CELL DISTRIBUTION WIDTH 14.4 % (11.5-14.5)
[2017-04-22 06:42] LABS: WHITE BLOOD COUNT 6.8 10^3/ul (4.8-10.8)
[2017-04-22 07:17] LABS: ANION GAP 15 (8-16); BLOOD UREA NITROGEN 26 mg/dl (7-20); CALCIUM 8.7 mg/dl (8.4-10.2); CARBON DIOXIDE 24 mmol/L (21-31); CHLORIDE 106 mmol/L (97-110); CREATININE 2.09 mg/dl (0.61-1.24); GLUCOSE 94 mg/dl (70-220); POTASSIUM 3.8 mmol/L (3.5-5.1); SODIUM 141 mmol/L (135-144)
[2017-04-22] MEDS: INSULIN ASPART [NOVOLOG] 3 ML PEN SC ×7 (07:55→22:12)
[2017-04-22] MEDS: LINAGLIPTIN 5 MG TABLET PO (08:07)
[2017-04-22] MEDS: APIXABAN 5 MG TABLET PO ×2 (08:07→22:13)
[2017-04-22] MEDS: AMIODARONE 200 MG TAB PO ×2 (08:08→22:13)
[2017-04-22] MEDS: FUROSEMIDE 40 MG TAB PO (08:08)
[2017-04-22] MEDS: LISINOPRIL 20 MG TAB PO (08:09)
[2017-04-22] MEDS: POTASSIUM CHLORIDE (SR) 20 MEQ TAB PO (08:18)
[2017-04-22] MEDS: GABAPENTIN 300 MG CAP PO (22:12)
[2017-04-22] MEDS: MIRTAZAPINE 15 MG TAB PO (22:13)
[2017-04-22] MEDS: ATORVASTATIN 80 MG TAB PO (22:15)
[2017-04-22] MEDS: INSULIN GLARGINE [LANtus] 3 ML PEN SC (22:27)
[2017-04-23] MEDS: ACCU-CHEK XX (02:00)
[2017-04-23] MEDS: LEVOTHYROXINE 75 MCG TAB PO (06:13)
[2017-04-23] MEDS: PANTOPRAZOLE (EC) 40 MG TAB PO (06:14)
[2017-04-23] MEDS: SOD CHLORIDE 0.45% 1,000 ML IV (06:16)
[2017-04-23] MEDS: INSULIN ASPART [NOVOLOG] 3 ML PEN SC ×7 (07:55→21:00)
[2017-04-23] MEDS: APIXABAN 5 MG TABLET PO ×2 (08:12→21:29)
[2017-04-23] MEDS: LISINOPRIL 20 MG TAB PO (08:13)
[2017-04-23] MEDS: LINAGLIPTIN 5 MG TABLET PO (08:13)
[2017-04-23] MEDS: POTASSIUM CHLORIDE (SR) 20 MEQ TAB PO (08:14)
[2017-04-23] MEDS: FUROSEMIDE 40 MG TAB PO (08:14)
[2017-04-23] MEDS: AMIODARONE 200 MG TAB PO ×2 (08:16→21:00)
[2017-04-23 11:36] LABS: ADD MAN DIFF? NO
[2017-04-23 11:44] LABS: BASOPHILS % 0.5 % (0.0-2.0); EOSINOPHILS # 0.3 10^3/ul (0.0-0.5); EOSINOPHILS % 3.8 % (0.0-7.0); HEMATOCRIT 30.9 % (42.0-52.0); HEMOGLOBIN 9.9 g/dl (14.0-18.0); LYMPHOCYTES # 1.3 10^3/ul (0.8-2.9); LYMPHOCYTES % 16.5 % (15.0-51.0); MEAN CORPUSCULAR HEMOGLOBIN 28.6 pg (29.0-33.0); MEAN CORPUSCULAR VOLUME 89.3 fl (82.0-101.0); MEAN PLATELET VOLUME 10.8 fl (7.4-10.4); MONOCYTE # 0.5 10^3/ul (0.3-0.9); MONOCYTES % 6.9 % (0.0-11.0); NEUTROPHIL # 5.4 10^3/ul (1.6-7.5); NEUTROPHILS % 71.6 % (39.0-77.0); PLATELET COUNT 257 10^3/UL (140-415); RED BLOOD COUNT 3.46 10^6/ul (4.70-6.10); RED CELL DISTRIBUTION WIDTH 14.3 % (11.5-14.5)
[2017-04-23 11:44] LABS: WHITE BLOOD COUNT 7.6 10^3/ul (4.8-10.8)
[2017-04-23 12:20] LABS: ANION GAP 14 (8-16); BLOOD UREA NITROGEN 33 mg/dl (7-20); CALCIUM 8.8 mg/dl (8.4-10.2); CARBON DIOXIDE 25 mmol/L (21-31); CHLORIDE 106 mmol/L (97-110); GLUCOSE 121 mg/dl (70-220); POTASSIUM 4.3 mmol/L (3.5-5.1); SODIUM 141 mmol/L (135-144)
[2017-04-23] MEDS: GABAPENTIN 300 MG CAP PO (21:29)
[2017-04-23] MEDS: ATORVASTATIN 80 MG TAB PO (21:31)
[2017-04-23] MEDS: MIRTAZAPINE 15 MG TAB PO (21:31)
[2017-04-23] MEDS: INSULIN GLARGINE [LANtus] 3 ML PEN SC (21:52)
[2017-04-24] MEDS: SOD CHLORIDE 0.45% 1,000 ML IV ×3 (01:34→14:20)
[2017-04-24] MEDS: ACCU-CHEK XX (02:00)
[2017-04-24] MEDS: PANTOPRAZOLE (EC) 40 MG TAB PO (05:29)
[2017-04-24] MEDS: LEVOTHYROXINE 75 MCG TAB PO (05:29)
[2017-04-24 06:46] LABS: ADD MAN DIFF? NO
[2017-04-24 06:49] LABS: BASOPHIL # 0.1 10^3/ul (0.0-0.1); BASOPHILS % 0.7 % (0.0-2.0); EOSINOPHILS # 0.3 10^3/ul (0.0-0.5); EOSINOPHILS % 4.3 % (0.0-7.0); HEMATOCRIT 30.8 % (42.0-52.0); LYMPHOCYTES # 1.3 10^3/ul (0.8-2.9); LYMPHOCYTES % 17.8 % (15.0-51.0); MEAN CORPUSCULAR HGB CONC 32.5 g/dl (32.0-37.0); MEAN CORPUSCULAR VOLUME 89.3 fl (82.0-101.0); MEAN PLATELET VOLUME 10.4 fl (7.4-10.4); MONOCYTE # 0.5 10^3/ul (0.3-0.9); MONOCYTES % 7.3 % (0.0-11.0); NEUTROPHIL # 5.2 10^3/ul (1.6-7.5); NEUTROPHILS % 69.4 % (39.0-77.0); PLATELET COUNT 246 10^3/UL (140-415); RED BLOOD COUNT 3.45 10^6/ul (4.70-6.10); RED CELL DISTRIBUTION WIDTH 14.2 % (11.5-14.5)
[2017-04-24 06:49] LABS: WHITE BLOOD COUNT 7.4 10^3/ul (4.8-10.8)
[2017-04-24 07:30] LABS: ANION GAP 14 (8-16); BLOOD UREA NITROGEN 31 mg/dl (7-20); CALCIUM 9.3 mg/dl (8.4-10.2); CARBON DIOXIDE 27 mmol/L (21-31); CHLORIDE 106 mmol/L (97-110); CREATININE 2.23 mg/dl (0.61-1.24); GLUCOSE 89 mg/dl (70-220); SODIUM 143 mmol/L (135-144)
[2017-04-24] MEDS: INSULIN ASPART [NOVOLOG] 3 ML PEN SC ×7 (07:55→20:01)
[2017-04-24] MEDS: LISINOPRIL 20 MG TAB PO ×2 (08:21→22:10)
[2017-04-24] MEDS: APIXABAN 5 MG TABLET PO ×2 (08:21→20:19)
[2017-04-24] MEDS: POTASSIUM CHLORIDE (SR) 20 MEQ TAB PO (08:21)
[2017-04-24] MEDS: AMIODARONE 200 MG TAB PO ×2 (08:21→20:27)
[2017-04-24] MEDS: LINAGLIPTIN 5 MG TABLET PO (08:21)
[2017-04-24] MEDS: INSULIN GLARGINE [LANtus] 3 ML PEN SC (20:01)
[2017-04-24] MEDS: GABAPENTIN 300 MG CAP PO (20:19)
[2017-04-24] MEDS: ATORVASTATIN 80 MG TAB PO (20:19)
[2017-04-24] MEDS: MIRTAZAPINE 15 MG TAB PO (20:19)
[2017-04-25] MEDS: ACCU-CHEK XX (02:00)
[2017-04-25] MEDS: PANTOPRAZOLE (EC) 40 MG TAB PO (06:00)
[2017-04-25] MEDS: SOD CHLORIDE 0.45% 1,000 ML IV ×2 (06:00→20:42)
[2017-04-25] MEDS: LEVOTHYROXINE 75 MCG TAB PO (06:00)
[2017-04-25] MEDS: INSULIN ASPART [NOVOLOG] 3 ML PEN SC ×7 (08:01→20:42)
[2017-04-25 08:14] LABS: ANION GAP 13 (8-16); BLOOD UREA NITROGEN 32 mg/dl (7-20); CALCIUM 8.7 mg/dl (8.4-10.2); CARBON DIOXIDE 27 mmol/L (21-31); CHLORIDE 106 mmol/L (97-110); CREATININE 1.98 mg/dl (0.61-1.24); GLUCOSE 154 mg/dl (70-220); POTASSIUM 4.3 mmol/L (3.5-5.1); SODIUM 142 mmol/L (135-144)
[2017-04-25] MEDS: POTASSIUM CHLORIDE (SR) 20 MEQ TAB PO (08:34)
[2017-04-25] MEDS: APIXABAN 5 MG TABLET PO ×2 (08:34→20:30)
[2017-04-25] MEDS: LINAGLIPTIN 5 MG TABLET PO (08:34)
[2017-04-25] MEDS: AMIODARONE 200 MG TAB PO ×2 (08:35→20:31)
[2017-04-25] MEDS: LISINOPRIL 20 MG TAB PO ×2 (08:35→20:31)
[2017-04-25] MEDS: GABAPENTIN 300 MG CAP PO (20:29)
[2017-04-25] MEDS: ATORVASTATIN 80 MG TAB PO (20:30)
[2017-04-25] MEDS: MIRTAZAPINE 15 MG TAB PO (20:30)
[2017-04-25] MEDS: INSULIN GLARGINE [LANtus] 3 ML PEN SC (20:39)
[2017-04-26] MEDS: ACCU-CHEK XX (02:00)
[2017-04-26] MEDS: PANTOPRAZOLE (EC) 40 MG TAB PO (05:52)
[2017-04-26] MEDS: LEVOTHYROXINE 75 MCG TAB PO (05:52)
[2017-04-26] MEDS: INSULIN ASPART [NOVOLOG] 3 ML PEN SC ×7 (07:55→21:00)
[2017-04-26] MEDS: APIXABAN 5 MG TABLET PO ×2 (08:05→20:16)
[2017-04-26] MEDS: POTASSIUM CHLORIDE (SR) 20 MEQ TAB PO (08:05)
[2017-04-26] MEDS: LINAGLIPTIN 5 MG TABLET PO (08:07)
[2017-04-26] MEDS: LISINOPRIL 20 MG TAB PO ×2 (08:07→20:30)
[2017-04-26] MEDS: AMIODARONE 200 MG TAB PO ×2 (08:07→21:00)
[2017-04-26] MEDS: GUAIFENESIN/DM 5ML CUP PO (08:09)
[2017-04-26 09:36] LABS: ANION GAP 13 (8-16); BLOOD UREA NITROGEN 35 mg/dl (7-20); CARBON DIOXIDE 26 mmol/L (21-31); CHLORIDE 109 mmol/L (97-110); CREATININE 2.02 mg/dl (0.61-1.24); GLUCOSE 114 mg/dl (70-220); POTASSIUM 4.4 mmol/L (3.5-5.1); SODIUM 144 mmol/L (135-144)
[2017-04-26] MEDS: SOD CHLORIDE 0.45% 1,000 ML IV (12:35)
[2017-04-26] MEDS: ATORVASTATIN 80 MG TAB PO (20:16)
[2017-04-26] MEDS: GABAPENTIN 300 MG CAP PO (20:17)
[2017-04-26] MEDS: INSULIN GLARGINE [LANtus] 3 ML PEN SC (20:23)
[2017-04-26] MEDS: MIRTAZAPINE 15 MG TAB PO (20:25)
[2017-04-27] MEDS: ACCU-CHEK XX (02:00)
[2017-04-27] MEDS: SOD CHLORIDE 0.45% 1,000 ML IV ×3 (02:48→18:25)
[2017-04-27] MEDS: LEVOTHYROXINE 75 MCG TAB PO (05:27)
[2017-04-27] MEDS: PANTOPRAZOLE (EC) 40 MG TAB PO (05:28)
[2017-04-27 07:18] LABS: ANION GAP 14 (8-16); BLOOD UREA NITROGEN 35 mg/dl (7-20); CALCIUM 8.9 mg/dl (8.4-10.2); CARBON DIOXIDE 25 mmol/L (21-31); CHLORIDE 109 mmol/L (97-110); CREATININE 1.86 mg/dl (0.61-1.24); GLUCOSE 83 mg/dl (70-220); POTASSIUM 4.4 mmol/L (3.5-5.1); SODIUM 144 mmol/L (135-144)
[2017-04-27] MEDS: INSULIN ASPART [NOVOLOG] 3 ML PEN SC ×7 (07:55→21:03)
[2017-04-27] MEDS: AMIODARONE 200 MG TAB PO ×2 (09:22→20:47)
[2017-04-27] MEDS: POTASSIUM CHLORIDE (SR) 20 MEQ TAB PO (09:22)
[2017-04-27] MEDS: LISINOPRIL 20 MG TAB PO (09:22)
[2017-04-27] MEDS: APIXABAN 5 MG TABLET PO ×2 (09:22→20:47)
[2017-04-27] MEDS: LINAGLIPTIN 5 MG TABLET PO (09:22)
[2017-04-27] MEDS: ATORVASTATIN 80 MG TAB PO (20:46)
[2017-04-27] MEDS: GABAPENTIN 300 MG CAP PO (20:46)
[2017-04-27] MEDS: MIRTAZAPINE 15 MG TAB PO (20:50)
[2017-04-27] MEDS: INSULIN GLARGINE [LANtus] 3 ML PEN SC (20:59)
[2017-04-28] MEDS: ACCU-CHEK XX (01:50)
[2017-04-28] MEDS: PANTOPRAZOLE (EC) 40 MG TAB PO (05:14)
[2017-04-28] MEDS: LEVOTHYROXINE 75 MCG TAB PO (05:14)
[2017-04-28 07:25] LABS: ADD MAN DIFF? NO
[2017-04-28 07:27] LABS: BASOPHIL # 0.1 10^3/ul (0.0-0.1); BASOPHILS % 0.9 % (0.0-2.0); EOSINOPHILS # 0.4 10^3/ul (0.0-0.5); EOSINOPHILS % 5.6 % (0.0-7.0); HEMATOCRIT 28.1 % (42.0-52.0); LYMPHOCYTES # 1.5 10^3/ul (0.8-2.9); LYMPHOCYTES % 23.9 % (15.0-51.0); MEAN CORPUSCULAR HEMOGLOBIN 28.8 pg (29.0-33.0); MEAN CORPUSCULAR VOLUME 89.8 fl (82.0-101.0); MEAN PLATELET VOLUME 10.9 fl (7.4-10.4); MONOCYTE # 0.6 10^3/ul (0.3-0.9); MONOCYTES % 8.6 % (0.0-11.0); NEUTROPHIL # 3.9 10^3/ul (1.6-7.5); NEUTROPHILS % 60.7 % (39.0-77.0); PLATELET COUNT 221 10^3/UL (140-415); RED BLOOD COUNT 3.13 10^6/ul (4.70-6.10); RED CELL DISTRIBUTION WIDTH 14.3 % (11.5-14.5)
[2017-04-28 07:27] LABS: WHITE BLOOD COUNT 6.4 10^3/ul (4.8-10.8)
[2017-04-28 07:50] LABS: ANION GAP 15 (8-16); BLOOD UREA NITROGEN 36 mg/dl (7-20); CALCIUM 8.5 mg/dl (8.4-10.2); CARBON DIOXIDE 22 mmol/L (21-31); CHLORIDE 111 mmol/L (97-110); CREATININE 1.57 mg/dl (0.61-1.24); GLUCOSE 158 mg/dl (70-220); POTASSIUM 4.6 mmol/L (3.5-5.1); SODIUM 143 mmol/L (135-144)
[2017-04-28] MEDS: INSULIN ASPART [NOVOLOG] 3 ML PEN SC ×7 (07:55→20:48)
[2017-04-28] MEDS: POTASSIUM CHLORIDE (SR) 20 MEQ TAB PO (08:40)
[2017-04-28] MEDS: LINAGLIPTIN 5 MG TABLET PO (08:40)
[2017-04-28] MEDS: AMIODARONE 200 MG TAB PO (08:40)
[2017-04-28] MEDS: APIXABAN 5 MG TABLET PO ×2 (08:40→20:47)
[2017-04-28] MEDS: ERGOCALCIFEROL 50,000 UNIT CAP PO (08:41)
[2017-04-28] MEDS: SOD CHLORIDE 0.45% 1,000 ML IV (08:57)
[2017-04-28] MEDS: ATORVASTATIN 80 MG TAB PO (20:46)
[2017-04-28] MEDS: MIRTAZAPINE 15 MG TAB PO (20:46)
[2017-04-28] MEDS: GABAPENTIN 300 MG CAP PO (20:46)
[2017-04-28] MEDS: INSULIN GLARGINE [LANtus] 3 ML PEN SC (20:55)
[2017-04-29] MEDS: ACCU-CHEK XX (02:00)
[2017-04-29] MEDS: SOD CHLORIDE 0.45% 1,000 ML IV ×2 (02:52→18:53)
[2017-04-29] MEDS: LEVOTHYROXINE 75 MCG TAB PO (06:33)
[2017-04-29] MEDS: PANTOPRAZOLE (EC) 40 MG TAB PO (06:34)
[2017-04-29] MEDS: INSULIN ASPART [NOVOLOG] 3 ML PEN SC ×7 (07:55→20:59)
[2017-04-29] MEDS: POTASSIUM CHLORIDE (SR) 20 MEQ TAB PO (08:38)
[2017-04-29] MEDS: APIXABAN 5 MG TABLET PO ×2 (08:38→20:46)
[2017-04-29] MEDS: LINAGLIPTIN 5 MG TABLET PO (08:38)
[2017-04-29] MEDS: AMIODARONE 200 MG TAB PO (08:39)
[2017-04-29 09:55] LABS: ANION GAP 11 (8-16); BLOOD UREA NITROGEN 35 mg/dl (7-20); CALCIUM 8.9 mg/dl (8.4-10.2); CARBON DIOXIDE 24 mmol/L (21-31); CHLORIDE 112 mmol/L (97-110); CREATININE 1.52 mg/dl (0.61-1.24); GLUCOSE 107 mg/dl (70-220); POTASSIUM 4.3 mmol/L (3.5-5.1); SODIUM 143 mmol/L (135-144)
[2017-04-29] MEDS: MIRTAZAPINE 15 MG TAB PO (20:46)
[2017-04-29] MEDS: GABAPENTIN 300 MG CAP PO (20:47)
[2017-04-29] MEDS: ATORVASTATIN 80 MG TAB PO (20:48)
[2017-04-29] MEDS: INSULIN GLARGINE [LANtus] 3 ML PEN SC (21:04)
[2017-04-30] MEDS: ACCU-CHEK XX (02:00)
[2017-04-30] MEDS: SOD CHLORIDE 0.45% 1,000 ML IV (06:21)
[2017-04-30] MEDS: PANTOPRAZOLE (EC) 40 MG TAB PO (06:23)
[2017-04-30] MEDS: LEVOTHYROXINE 75 MCG TAB PO (06:23)
[2017-04-30] MEDS: INSULIN ASPART [NOVOLOG] 3 ML PEN SC ×7 (07:55→20:20)
[2017-04-30 08:04] LABS: ADD MAN DIFF? NO
[2017-04-30 08:20] LABS: BASOPHIL # 0.1 10^3/ul (0.0-0.1); BASOPHILS % 1.9 % (0.0-2.0); EOSINOPHILS # 0.4 10^3/ul (0.0-0.5); HEMATOCRIT 29.7 % (42.0-52.0); HEMOGLOBIN 9.4 g/dl (14.0-18.0); LYMPHOCYTES # 1.8 10^3/ul (0.8-2.9); LYMPHOCYTES % 33.1 % (15.0-51.0); MEAN CORPUSCULAR HEMOGLOBIN 28.2 pg (29.0-33.0); MEAN CORPUSCULAR HGB CONC 31.6 g/dl (32.0-37.0); MEAN CORPUSCULAR VOLUME 89.2 fl (82.0-101.0); MEAN PLATELET VOLUME 11.2 fl (7.4-10.4); MONOCYTE # 0.4 10^3/ul (0.3-0.9); MONOCYTES % 7.4 % (0.0-11.0); NEUTROPHIL # 2.7 10^3/ul (1.6-7.5); NEUTROPHILS % 50.4 % (39.0-77.0); PLATELET COUNT 227 10^3/UL (140-415); RED BLOOD COUNT 3.33 10^6/ul (4.70-6.10); RED CELL DISTRIBUTION WIDTH 14.3 % (11.5-14.5)
[2017-04-30 08:20] LABS: WHITE BLOOD COUNT 5.3 10^3/ul (4.8-10.8)
[2017-04-30 08:36] LABS: ANION GAP 12 (8-16); BLOOD UREA NITROGEN 30 mg/dl (7-20); CALCIUM 8.8 mg/dl (8.4-10.2); CARBON DIOXIDE 23 mmol/L (21-31); CHLORIDE 114 mmol/L (97-110); CREATININE 1.61 mg/dl (0.61-1.24); GLUCOSE 75 mg/dl (70-220); POTASSIUM 4.3 mmol/L (3.5-5.1); SODIUM 145 mmol/L (135-144)
[2017-04-30] MEDS: LINAGLIPTIN 5 MG TABLET PO (09:06)
[2017-04-30] MEDS: POTASSIUM CHLORIDE (SR) 20 MEQ TAB PO (09:06)
[2017-04-30] MEDS: APIXABAN 5 MG TABLET PO ×2 (09:07→20:20)
[2017-04-30] MEDS: AMIODARONE 200 MG TAB PO (09:07)
[2017-04-30] MEDS: GABAPENTIN 300 MG CAP PO (20:14)
[2017-04-30] MEDS: ATORVASTATIN 80 MG TAB PO (20:14)
[2017-04-30] MEDS: INSULIN GLARGINE [LANtus] 3 ML PEN SC (20:16)
[2017-04-30] MEDS: MIRTAZAPINE 15 MG TAB PO (20:19)
[2017-05-01] MEDS: ACCU-CHEK XX (02:18)
[2017-05-01] MEDS: SOD CHLORIDE 0.45% 1,000 ML IV ×2 (02:58→23:55)
[2017-05-01] MEDS: LEVOTHYROXINE 75 MCG TAB PO (05:53)
[2017-05-01] MEDS: PANTOPRAZOLE (EC) 40 MG TAB PO (05:53)
[2017-05-01] MEDS: INSULIN ASPART [NOVOLOG] 3 ML PEN SC ×7 (07:55→20:07)
[2017-05-01 08:19] LABS: ADD MAN DIFF? NO
[2017-05-01 08:27] LABS: BASOPHIL # 0.1 10^3/ul (0.0-0.1); BASOPHILS % 1.7 % (0.0-2.0); EOSINOPHILS # 0.3 10^3/ul (0.0-0.5); HEMOGLOBIN 8.9 g/dl (14.0-18.0); LYMPHOCYTES # 1.6 10^3/ul (0.8-2.9); LYMPHOCYTES % 32.5 % (15.0-51.0); MEAN CORPUSCULAR HEMOGLOBIN 28.1 pg (29.0-33.0); MEAN CORPUSCULAR HGB CONC 31.8 g/dl (32.0-37.0); MEAN CORPUSCULAR VOLUME 88.3 fl (82.0-101.0); MEAN PLATELET VOLUME 10.9 fl (7.4-10.4); MONOCYTE # 0.4 10^3/ul (0.3-0.9); MONOCYTES % 8.7 % (0.0-11.0); NEUTROPHIL # 2.4 10^3/ul (1.6-7.5); NEUTROPHILS % 49.7 % (39.0-77.0); PLATELET COUNT 211 10^3/UL (140-415); RED BLOOD COUNT 3.17 10^6/ul (4.70-6.10); RED CELL DISTRIBUTION WIDTH 14.4 % (11.5-14.5)
[2017-05-01 08:27] LABS: WHITE BLOOD COUNT 4.8 10^3/ul (4.8-10.8)
[2017-05-01 08:43] LABS: MAGNESIUM 1.3 mg/dl (1.7-2.5)
[2017-05-01 08:43] LABS: ANION GAP 14 (8-16); BLOOD UREA NITROGEN 26 mg/dl (7-20); CALCIUM 8.8 mg/dl (8.4-10.2); CARBON DIOXIDE 22 mmol/L (21-31); CHLORIDE 113 mmol/L (97-110); GLUCOSE 94 mg/dl (70-220); POTASSIUM 4.2 mmol/L (3.5-5.1); SODIUM 145 mmol/L (135-144)
[2017-05-01] MEDS: POTASSIUM CHLORIDE (SR) 20 MEQ TAB PO (10:02)
[2017-05-01] MEDS: AMIODARONE 200 MG TAB PO (10:02)
[2017-05-01] MEDS: FUROSEMIDE 20 MG TAB PO (10:02)
[2017-05-01] MEDS: APIXABAN 5 MG TABLET PO ×2 (10:03→20:18)
[2017-05-01] MEDS: LINAGLIPTIN 5 MG TABLET PO (10:03)
[2017-05-01] MEDS: MAGNESIUM SULFATE 2 GM/50 ML 50 ML IVPB (14:05)
[2017-05-01] MEDS: MIRTAZAPINE 15 MG TAB PO (20:17)
[2017-05-01] MEDS: ATORVASTATIN 80 MG TAB PO (20:17)
[2017-05-01] MEDS: GABAPENTIN 300 MG CAP PO (20:17)
[2017-05-01] MEDS: INSULIN GLARGINE [LANtus] 3 ML PEN SC (20:22)
[2017-05-02] MEDS: ACCU-CHEK XX (02:00)
[2017-05-02] MEDS: PANTOPRAZOLE (EC) 40 MG TAB PO (06:03)
[2017-05-02] MEDS: LEVOTHYROXINE 75 MCG TAB PO (06:03)
[2017-05-02 07:10] LABS: ADD MAN DIFF? NO
[2017-05-02 07:17] LABS: BASOPHIL # 0.1 10^3/ul (0.0-0.1); BASOPHILS % 1.8 % (0.0-2.0); EOSINOPHILS # 0.4 10^3/ul (0.0-0.5); EOSINOPHILS % 7.1 % (0.0-7.0); HEMATOCRIT 30.7 % (42.0-52.0); HEMOGLOBIN 9.8 g/dl (14.0-18.0); LYMPHOCYTES # 1.4 10^3/ul (0.8-2.9); LYMPHOCYTES % 29.1 % (15.0-51.0); MEAN CORPUSCULAR HEMOGLOBIN 28.1 pg (29.0-33.0); MEAN CORPUSCULAR HGB CONC 31.9 g/dl (32.0-37.0); MEAN PLATELET VOLUME 10.9 fl (7.4-10.4); MONOCYTE # 0.4 10^3/ul (0.3-0.9); MONOCYTES % 8.1 % (0.0-11.0); NEUTROPHIL # 2.7 10^3/ul (1.6-7.5); NEUTROPHILS % 53.7 % (39.0-77.0); PLATELET COUNT 216 10^3/UL (140-415); RED BLOOD COUNT 3.49 10^6/ul (4.70-6.10); RED CELL DISTRIBUTION WIDTH 14.4 % (11.5-14.5)
[2017-05-02 07:38] LABS: ANION GAP 12 (8-16); BLOOD UREA NITROGEN 25 mg/dl (7-20); CALCIUM 9.3 mg/dl (8.4-10.2); CARBON DIOXIDE 25 mmol/L (21-31); CHLORIDE 111 mmol/L (97-110); CREATININE 1.42 mg/dl (0.61-1.24); GLUCOSE 95 mg/dl (70-220); MAGNESIUM 1.8 mg/dl (1.7-2.5); POTASSIUM 4.4 mmol/L (3.5-5.1); SODIUM 144 mmol/L (135-144)
[2017-05-02] MEDS: INSULIN ASPART [NOVOLOG] 3 ML PEN SC ×7 (07:48→21:00)
[2017-05-02] MEDS: LINAGLIPTIN 5 MG TABLET PO (07:49)
[2017-05-02] MEDS: APIXABAN 5 MG TABLET PO ×2 (07:50→20:19)
[2017-05-02] MEDS: POTASSIUM CHLORIDE (SR) 20 MEQ TAB PO (07:50)
[2017-05-02] MEDS: FUROSEMIDE 20 MG TAB PO (07:50)
[2017-05-02] MEDS: AMIODARONE 200 MG TAB PO (07:50)
[2017-05-02] MEDS: MIRTAZAPINE 15 MG TAB PO (20:19)
[2017-05-02] MEDS: ATORVASTATIN 80 MG TAB PO (20:19)
[2017-05-02] MEDS: GABAPENTIN 300 MG CAP PO (20:19)
[2017-05-02] MEDS: SOD CHLORIDE 0.45% 1,000 ML IV (20:21)
[2017-05-02] MEDS: INSULIN GLARGINE [LANtus] 3 ML PEN SC (20:26)
[2017-05-03] MEDS: ACCU-CHEK XX (02:00)
[2017-05-03] MEDS: LEVOTHYROXINE 75 MCG TAB PO (05:16)
[2017-05-03] MEDS: PANTOPRAZOLE (EC) 40 MG TAB PO (05:16)
[2017-05-03 07:20] LABS: ANION GAP 12 (8-16); BLOOD UREA NITROGEN 31 mg/dl (7-20); CALCIUM 8.9 mg/dl (8.4-10.2); CARBON DIOXIDE 24 mmol/L (21-31); CHLORIDE 109 mmol/L (97-110); CREATININE 1.65 mg/dl (0.61-1.24); GLUCOSE 139 mg/dl (70-220); POTASSIUM 4.1 mmol/L (3.5-5.1); SODIUM 141 mmol/L (135-144)
[2017-05-03] MEDS: INSULIN ASPART [NOVOLOG] 3 ML PEN SC ×7 (08:04→20:22)
[2017-05-03] MEDS: AMIODARONE 200 MG TAB PO (08:57)
[2017-05-03] MEDS: FUROSEMIDE 20 MG TAB PO (08:57)
[2017-05-03] MEDS: LINAGLIPTIN 5 MG TABLET PO (08:57)
[2017-05-03] MEDS: POTASSIUM CHLORIDE (SR) 20 MEQ TAB PO (08:58)
[2017-05-03] MEDS: APIXABAN 5 MG TABLET PO ×2 (08:58→20:21)
[2017-05-03] MEDS: SOD CHLORIDE 0.45% 1,000 ML IV (15:08)
[2017-05-03] MEDS: ATORVASTATIN 80 MG TAB PO (20:21)
[2017-05-03] MEDS: MIRTAZAPINE 15 MG TAB PO (20:21)
[2017-05-03] MEDS: GABAPENTIN 300 MG CAP PO (20:21)
[2017-05-03] MEDS: INSULIN GLARGINE [LANtus] 3 ML PEN SC (20:29)
[2017-05-04] MEDS: ACCU-CHEK XX (02:00)
[2017-05-04] MEDS: PANTOPRAZOLE (EC) 40 MG TAB PO (05:42)
[2017-05-04] MEDS: LEVOTHYROXINE 75 MCG TAB PO (05:43)
[2017-05-04] MEDS: SOD CHLORIDE 0.45% 1,000 ML IV (05:43)
[2017-05-04 06:27] LABS: ADD MAN DIFF? NO
[2017-05-04 06:36] LABS: BASOPHIL # 0.1 10^3/ul (0.0-0.1); BASOPHILS % 1.1 % (0.0-2.0); EOSINOPHILS # 0.4 10^3/ul (0.0-0.5); EOSINOPHILS % 6.5 % (0.0-7.0); HEMATOCRIT 29.1 % (42.0-52.0); HEMOGLOBIN 9.5 g/dl (14.0-18.0); LYMPHOCYTES # 1.6 10^3/ul (0.8-2.9); LYMPHOCYTES % 25.4 % (15.0-51.0); MEAN CORPUSCULAR HGB CONC 32.6 g/dl (32.0-37.0); MEAN CORPUSCULAR VOLUME 88.7 fl (82.0-101.0); MEAN PLATELET VOLUME 10.7 fl (7.4-10.4); MONOCYTE # 0.5 10^3/ul (0.3-0.9); MONOCYTES % 8.2 % (0.0-11.0); NEUTROPHIL # 3.7 10^3/ul (1.6-7.5); NEUTROPHILS % 58.5 % (39.0-77.0); PLATELET COUNT 175 10^3/UL (140-415); RED BLOOD COUNT 3.28 10^6/ul (4.70-6.10); RED CELL DISTRIBUTION WIDTH 14.6 % (11.5-14.5)
[2017-05-04 06:36] LABS: WHITE BLOOD COUNT 6.4 10^3/ul (4.8-10.8)
[2017-05-04 07:00] LABS: ANION GAP 13 (8-16); BLOOD UREA NITROGEN 31 mg/dl (7-20); CALCIUM 9.2 mg/dl (8.4-10.2); CARBON DIOXIDE 22 mmol/L (21-31); CHLORIDE 111 mmol/L (97-110); CREATININE 1.59 mg/dl (0.61-1.24); GLUCOSE 108 mg/dl (70-220); POTASSIUM 4.1 mmol/L (3.5-5.1); SODIUM 142 mmol/L (135-144)
[2017-05-04] MEDS: INSULIN ASPART [NOVOLOG] 3 ML PEN SC ×7 (07:55→21:48)
[2017-05-04] MEDS: POTASSIUM CHLORIDE (SR) 20 MEQ TAB PO (09:13)
[2017-05-04] MEDS: FUROSEMIDE 20 MG TAB PO (09:13)
[2017-05-04] MEDS: LINAGLIPTIN 5 MG TABLET PO (09:14)
[2017-05-04] MEDS: APIXABAN 5 MG TABLET PO ×2 (09:14→21:34)
[2017-05-04] MEDS: AMIODARONE 200 MG TAB PO (09:14)
[2017-05-04] MEDS: GABAPENTIN 300 MG CAP PO (21:34)
[2017-05-04] MEDS: MIRTAZAPINE 15 MG TAB PO (21:34)
[2017-05-04] MEDS: INSULIN GLARGINE [LANtus] 3 ML PEN SC (21:48)
[2017-05-04] MEDS: ATORVASTATIN 80 MG TAB PO (21:50)
[2017-05-05] MEDS: ACCU-CHEK XX (02:00)
[2017-05-05] MEDS: LEVOTHYROXINE 75 MCG TAB PO (05:19)
[2017-05-05] MEDS: PANTOPRAZOLE (EC) 40 MG TAB PO (05:20)
[2017-05-05] MEDS: SOD CHLORIDE 0.45% 1,000 ML IV (05:51)
[2017-05-05 06:18] LABS: ADD MAN DIFF? NO
[2017-05-05 06:36] LABS: WHITE BLOOD COUNT 5.6 10^3/ul (4.8-10.8)
[2017-05-05 06:36] LABS: BASOPHIL # 0.1 10^3/ul (0.0-0.1); BASOPHILS % 1.4 % (0.0-2.0); EOSINOPHILS # 0.5 10^3/ul (0.0-0.5); EOSINOPHILS % 8.1 % (0.0-7.0); HEMATOCRIT 29.3 % (42.0-52.0); HEMOGLOBIN 9.6 g/dl (14.0-18.0); LYMPHOCYTES # 1.9 10^3/ul (0.8-2.9); LYMPHOCYTES % 33.9 % (15.0-51.0); MEAN CORPUSCULAR HEMOGLOBIN 28.8 pg (29.0-33.0); MEAN CORPUSCULAR HGB CONC 32.8 g/dl (32.0-37.0); MEAN PLATELET VOLUME 11.1 fl (7.4-10.4); MONOCYTE # 0.5 10^3/ul (0.3-0.9); NEUTROPHIL # 2.6 10^3/ul (1.6-7.5); NEUTROPHILS % 47.2 % (39.0-77.0); PLATELET COUNT 167 10^3/UL (140-415); RED BLOOD COUNT 3.33 10^6/ul (4.70-6.10); RED CELL DISTRIBUTION WIDTH 14.7 % (11.5-14.5)
[2017-05-05 07:12] LABS: ANION GAP 12 (8-16); BLOOD UREA NITROGEN 30 mg/dl (7-20); CALCIUM 8.8 mg/dl (8.4-10.2); CARBON DIOXIDE 25 mmol/L (21-31); CHLORIDE 110 mmol/L (97-110); CREATININE 1.58 mg/dl (0.61-1.24); GLUCOSE 86 mg/dl (70-220); POTASSIUM 4.2 mmol/L (3.5-5.1); SODIUM 143 mmol/L (135-144)
[2017-05-05] MEDS: INSULIN ASPART [NOVOLOG] 3 ML PEN SC ×7 (07:55→21:00)
[2017-05-05] MEDS: POTASSIUM CHLORIDE (SR) 20 MEQ TAB PO (08:19)
[2017-05-05] MEDS: AMIODARONE 200 MG TAB PO (08:20)
[2017-05-05] MEDS: LINAGLIPTIN 5 MG TABLET PO (08:20)
[2017-05-05] MEDS: APIXABAN 5 MG TABLET PO ×2 (08:20→20:23)
[2017-05-05] MEDS: ERGOCALCIFEROL 50,000 UNIT CAP PO (10:51)
[2017-05-05] MEDS: GABAPENTIN 300 MG CAP PO (20:23)
[2017-05-05] MEDS: ATORVASTATIN 80 MG TAB PO (20:24)
[2017-05-05] MEDS: MIRTAZAPINE 15 MG TAB PO (20:24)
[2017-05-05] MEDS: INSULIN GLARGINE [LANtus] 3 ML PEN SC (20:29)
[2017-05-06] MEDS: ACCU-CHEK XX (02:00)
[2017-05-06] MEDS: SOD CHLORIDE 0.45% 1,000 ML IV (04:09)
[2017-05-06] MEDS: PANTOPRAZOLE (EC) 40 MG TAB PO (05:18)
[2017-05-06] MEDS: LEVOTHYROXINE 75 MCG TAB PO (05:19)
[2017-05-06 07:31] LABS: BLOOD UREA NITROGEN 32 mg/dl (7-20); CALCIUM 9.1 mg/dl (8.4-10.2); CARBON DIOXIDE 24 mmol/L (21-31); CHLORIDE 109 mmol/L (97-110); CREATININE 1.53 mg/dl (0.61-1.24); GLUCOSE 116 mg/dl (70-220); SODIUM 140 mmol/L (135-144)
[2017-05-06 07:54] LABS: ANION GAP 11 (8-16)
[2017-05-06] MEDS: INSULIN ASPART [NOVOLOG] 3 ML PEN SC ×4 (07:55→12:14)
[2017-05-06 07:56] LABS: POTASSIUM 4.2 mmol/L (3.5-5.1)
[2017-05-06] MEDS: AMIODARONE 200 MG TAB PO (09:32)
[2017-05-06] MEDS: APIXABAN 5 MG TABLET PO (09:32)
[2017-05-06] MEDS: POTASSIUM CHLORIDE (SR) 20 MEQ TAB PO (09:32)
[2017-05-06] MEDS: LINAGLIPTIN 5 MG TABLET PO (09:33)
== END 2017-05-06 16:26 | disposition home health service (06) | DRG 255 ==
LOC: SDS 13:47 → TEL 04-14 17:36 → SDS 13:47 → TEL 21:37
PROVIDERS: Internal Medicine
PROC: 0Y6S0Z0 Detachment at Left 2nd Toe, Complete, Open Approach (ICD-10-PCS; principal; 2017-04-08 15:30)
DX: I97.89 Other postprocedural complications and disorders of the circulatory system, not elsewhere classified (principal); I50.23 Acute on chronic systolic (congestive) heart failure; N17.9 Acute kidney failure, unspecified; M86.8X7 Other osteomyelitis, ankle and foot; E11.40 Type 2 diabetes mellitus with diabetic neuropathy, unspecified; E11.51 Type 2 diabetes mellitus with diabetic peripheral angiopathy without gangrene; I42.8 Other cardiomyopathies; I69.351 Hemiplegia and hemiparesis following cerebral infarction affecting right dominant side; I49.3 Ventricular premature depolarization; T50.1X5A Adverse effect of loop [high-ceiling] diuretics, initial encounter; Y92.9 Unspecified place or not applicable; J10.1 Influenza due to other identified influenza virus with other respiratory manifestations; E11.69 Type 2 diabetes mellitus with other specified complication; E78.2 Mixed hyperlipidemia; E03.9 Hypothyroidism, unspecified; I11.0 Hypertensive heart disease with heart failure; D64.9 Anemia, unspecified; I69.320 Aphasia following cerebral infarction; Y83.9 Surgical procedure, unspecified as the cause of abnormal reaction of the patient, or of later complication, without mention of misadventure at the time of the procedure; Y92.239 Unspecified place in hospital as the place of occurrence of the external cause; T50.2X5A Adverse effect of carbonic-anhydrase inhibitors, benzothiadiazides and other diuretics, initial encounter; R00.1 Bradycardia, unspecified
CPT/HCPCS: 71045; 76775; 80048; 80053; 80061; 80202; 81001; 82550; 82553; 82962; 83036; 83735; 83880; 84100; 84439; 84443; 84484; 85025; 87040; 87086; 87400; 88304; 88311; 93005; 93306; 97110; 97163; 97530; G0378